=== PATIENT | female | born 1945 | race Native Hawaiian/Other Pacific Islander ===

== ENCOUNTER 2017-06-06 06:58 | Day surgery (SDC) | payer MEDICARE, MEDICAID ==
[2017-06-04 13:47] VITALS: BMI 21.2
[~2017-06-06 06:58] MED LIST: Lactated Ringer's 500 ML IV ONE; Phenylephrine 2.5% Opht Soln OS SCH; Tropicamide 1% Opht SOLUTION OS SCH
[2017-06-06] MEDS ORDERED: Lidocaine 2% Inj (20ml) INFIL ONE (07:28)
[2017-06-06] MEDS ORDERED: Povidone Iodine Ophthalmic 5% Soln ONE (07:29)
[2017-06-06] MEDS ORDERED: Carbachol 0.01% IO ONE (07:30)
[2017-06-06] MEDS ORDERED: Tobramycin/Dexamethasone OPHT OINT ONE (07:30)
[2017-06-06] MEDS ORDERED: Chondroitin/Hyaluronate Opth Syringe KIT (0.55 ml-0.5 ml) IO ONE (07:30)
[2017-06-06] MEDS ORDERED: Hyaluronidase Human, Recombi 150 U/ML VIAL ONE (07:30)
[2017-06-06] MEDS ORDERED: Tetracaine 0.5% Ophth (OR ONLY) ONE (07:30)
[2017-06-06] MEDS ORDERED: Lactated Ringer's 500 ML IV ONE (07:35)
[2017-06-06] MEDS ORDERED: Propofol 10 mg/ml Inj (20 ML) ONE (09:12)
--- NOTE | 2017-06-06 10:14 | OP ---
PROCEDURE DATE: 06/06/2017 PREOPERATIVE DIAGNOSIS: Mature nuclear cataract, left eye. POSTOPERATIVE DIAGNOSIS: Mature nuclear cataract, left eye. OPERATIVE PROCEDURE: Cataract extraction with lens implant, left eye. ATTENDING SURGEON: Sid Conway MD LENS IMPLANT: Left eye. ANESTHESIA: Retrobulbar block. COMPLICATIONS: None. PROCEDURE: The patient was brought to the operating room and properly identified. Anesthesia staff administered intravenous sedation and retrobulbar block was given to the surgical eye. The patient was then prepped and draped in the usual sterile fashion. Attention was turned to the surgical eye. A lid speculum was placed into interpalpebral fissure. Sitting temporally, two paracentesis incisions were made. The anterior chamber was filled with viscoelastic and a triplanar clear corneal incision was made. Using a cystitome, anterior capsular leaflet was created. Utrata forceps were used to create a continuous curvilinear capsulorrhexis. Balanced salt solution on a cannula was used to hydrodissect and hydrodelineate the lens. The lens was then phacoemulsified with no complications. Automated irrigation and aspiration was used to remove the cortex. Viscoelastic was used to deepen the anterior chamber. The lens was placed in the capsular bag. Automated irrigation and aspiration was used to remove the viscoelastic. The anterior chamber was filled with Miochol. The wounds were hydrated with balanced salt solution. There was noted to be no leak at the end of the case and the lens was well positioned. The lid speculum was removed. The eye was given antibiotics and steroids and covered with a patch and shield. The patient was returned to the recovery room in stable condition Sid Conway MD
[2017-06-06 11:39] VITALS: BP 119/64; PULSE 74; RESP 18; TEMP 97.8; O2SAT 99
== END 2017-06-06 11:05 | disposition home or self-care (01) ==
LOC: C.SDS 06:58
PROVIDERS: ATTEND Ophthalmology
DX: H25.12 Age-related nuclear cataract, left eye (principal); E89.0 Postprocedural hypothyroidism; E78.00 Pure hypercholesterolemia, unspecified; M81.0 Age-related osteoporosis without current pathological fracture
CPT/HCPCS: 66984; J2704; J3470; J7120; V2632

== ENCOUNTER 2017-06-20 06:23 | Day surgery (SDC) | payer MEDICARE, MEDICAID ==
[2017-06-04 13:47] VITALS: BMI 21.2
[~2017-06-20 06:23] MED LIST changes: +Phenylephrine 2.5% Opht Soln OD SCH; -Phenylephrine 2.5% Opht Soln OS SCH; +Tropicamide 1% Opht SOLUTION OD SCH; -Tropicamide 1% Opht SOLUTION OS SCH
[2017-06-20] MEDS ORDERED: Carbachol 0.01% IO ONE (07:27)
[2017-06-20] MEDS ORDERED: Povidone Iodine Ophthalmic 5% Soln ONE (07:27)
[2017-06-20] MEDS ORDERED: Tetracaine 0.5% Ophth (OR ONLY) ONE (07:28)
[2017-06-20] MEDS ORDERED: Tobramycin/Dexamethasone OPHT OINT ONE (07:28)
[2017-06-20] MEDS ORDERED: Hyaluronidase Human, Recombi 150 U/ML VIAL ONE (07:28)
[2017-06-20] MEDS ORDERED: Chondroitin/Hyaluronate Opth Syringe KIT (0.55 ml-0.5 ml) IO ONE (07:28)
[2017-06-20] MEDS ORDERED: Lidocaine Hydrochloride 5 ML INJ ONE (07:32)
[2017-06-20] MEDS ORDERED: Cyclopentolate 1% Opth (2 ml) ONE (07:45)
[2017-06-20] MEDS ORDERED: Phenylephrine 2.5% Opht Soln ONE (07:45)
[2017-06-20] MEDS ORDERED: Lactated Ringer's 1,000 ML IV ONE (07:56)
[2017-06-20] MEDS ORDERED: Propofol 10 mg/ml Inj (20 ML) ONE (08:37)
[2017-06-20 09:30] VITALS: O2SAT 100
[2017-06-20 11:36] VITALS: BP 126/61; PULSE 81; RESP 16; TEMP 97.8
--- NOTE | 2017-06-20 20:48 | OP ---
PROCEDURE DATE: 06/20/2017 PREOPERATIVE DIAGNOSIS: Mature nuclear cataract, right eye. POSTOPERATIVE DIAGNOSIS: Mature nuclear cataract, right eye. PROCEDURE: Cataract extraction with lens implant, right eye. SURGEON: Sid Conway MD ANESTHESIA: Retrobulbar block. ESTIMATED BLOOD LOSS: Zero. DESCRIPTION OF PROCEDURE: The patient was brought to the operating room and properly identified. Anesthesia staff administered intravenous sedation and retrobulbar block was given to the surgical eye. The patient was then prepped and draped in the usual sterile fashion. Attention was turned to the surgical eye. A lid speculum was placed into interpalpebral fissure. Sitting temporally, two paracentesis incisions were made. The anterior chamber was filled with viscoelastic and a triplanar clear corneal incision was made. Using a cystitome, anterior capsular leaflet was created. Utrata forceps were used to create a continuous curvilinear capsulorrhexis. Balanced salt solution on a cannula was used to hydrodissect and hydrodelineate the lens. The lens was then phacoemulsified with no complications. Automated irrigation and aspiration was used to remove the cortex. Viscoelastic was used to deepen the anterior chamber. The lens was placed in the capsular bag. Automated irrigation and aspiration was used to remove the viscoelastic. The anterior chamber was filled with Miochol. The wounds were hydrated with balanced salt solution. There was noted to be no leak at the end of the case and the lens was well positioned. The lid speculum was removed. The eye was given antibiotics and steroids and covered with a patch and shield. The patient was returned to the recovery room in stable condition. Sid Conway MD
== END 2017-06-20 10:00 | disposition home or self-care (01) ==
LOC: C.SDS 06:23
PROVIDERS: ATTEND Ophthalmology
DX: H25.11 Age-related nuclear cataract, right eye (principal)